=== PATIENT | female | born 1975 | race Two or more races ===

== ENCOUNTER 2020-06-20 22:54 | Inpatient (IN) | payer MEDICAID ==
[~2020-06-20] VITALS: Ht 154.9 cm; Wt 86.0 kg
[~2020-06-20 22:54] MED LIST: AMOX-263 PO; FER325T PO; HYDR-4833 PO; HYDR25TA4 PO; LEVO500T21 PO
[2020-06-20 23:58] LABS: Basophils # (auto) 0 10 ^3/uL (0-0.2); Eosinophils # (auto) 0.1 10 ^3/uL (0-0.8); Monocytes # (auto) 0.3 10 ^3/uL (0-1.3); Neutrophils # (auto) 3.1 10 ^3/uL (1.6-8.6); Red Cell Distribution Width 18.3 % (11.8-14.3)
[2020-06-21] VITALS (10 sets, daily range): BP systolic 117–153; BP diastolic 66–107
[2020-06-21] LABS: Basophils % (auto) 0.4 % (0.0-2.0); Eosinophils % (auto) 2.7 % (0.0-7.0); Hemoglobin 7.7 g/dL (12.2-16.2); Lymphocytes % (auto) 22.4 % (10.0-50.0); Mean Corpuscular Hemoglobin 19.3 pg (28.0-32.0); Mean Corpuscular Hgb Conc. 29.7 g/dL (32.0-36.0); Mean Corpuscular Volume 64.9 fL (80.0-100.0); Monocytes % (auto) 6.6 % (0.0-12.0); Neutrophils % (auto) 67.9 % (37.0-80.0); Platelet Count (auto) 396 10^3/uL (140-450); Red Blood Cells 4.01 10^6/uL (4.0-5.20); White Blood Cell 4.6 10^3/uL (4.4-10.8)
[2020-06-21 00:22] LABS: BUN/Creatinine Ratio 16.7; Calcium 8.3 mg/dL (8.5-10.1); Potassium 3.8 mmol/L (3.5-5.1)
[2020-06-21] MEDS ORDERED: cefTRIAXone 1GM/50ML D5W 50 ML IV ONE (02:15)
[2020-06-21] MEDS ORDERED: CLINDAMYCIN 900MG IV 50 ML IV ONE (02:15)
[2020-06-21] MEDS ORDERED: ACETAMINOPHEN 325 MG TAB PO PRN (02:45)
[2020-06-21] MEDS ORDERED: TEMAZEPAM 15 MG CAP PO PRN (02:45)
[2020-06-21] MEDS ORDERED: MORPHINE SULFATE 4 MG/ML SYR/VIAL IV ONE (03:15)
[2020-06-21] MEDS ORDERED: ONDANSETRON HCL 4 MG/2 ML VIAL IV ONE (03:15)
[2020-06-21] MEDS: ONDANSETRON HCL 4 MG/2 ML VIAL IV PRN ×2 (03:35→10:16)
[2020-06-21] MEDS: CLINDAMYCIN 600MG IV 50 ML IV SCH ×3 (06:16→21:43)
[2020-06-21] MEDS: HCTZ 25 MG TAB PO SCH (08:49)
[2020-06-21] MEDS: FERROUS SULFATE 325 MG TAB PO SCH ×2 (08:49→17:14)
[2020-06-21] MEDS: FAMOTIDINE 20 MG TAB PO SCH ×2 (08:49→21:44)
[2020-06-21] MEDS: cefTRIAXone 1GM/50ML D5W 50 ML IV SCH (09:20)
[2020-06-21] MEDS ORDERED: ONDANSETRON HCL 4 MG/2 ML VIAL IV PRN (10:00)
[2020-06-21] MEDS ORDERED: HYDROcodone-ACET 7.5/325MG TAB PO PRN (10:00)
[2020-06-21] MEDS ORDERED: MORPHINE SULF INJ 2 MG/ML SYRINGE 1ML IV PRN (10:00)
--- NOTE | 2020-06-21 11:29 | NUR ---
Midline Placement: Patient educated on need for midline placement. All risks and benefits explained and all questions and concerns addresses prior to procedure. 18g/10 cm midline inserted via RIGHT BASILIC vein using Ultrasound. Sterile technique utilized. Blood return obtained from the single lumen and flushed easily with NS using proper technique. Midline secured with saline lock; biodisc and occlusive dressing applied. Primary RN Vilma notified. Midline lot # [id number].
[2020-06-21 11:39] LABS: Basophils # (auto) 0 10 ^3/uL (0-0.2); Eosinophils # (auto) 0.1 10 ^3/uL (0-0.8); Monocytes # (auto) 0.4 10 ^3/uL (0-1.3); Red Cell Distribution Width 18.8 % (11.8-14.3)
[2020-06-21 11:40] LABS: Basophils % (auto) 0.4 % (0.0-2.0); Eosinophils % (auto) 1.9 % (0.0-7.0); Hematocrit 22.9 % (36.0-46.0); Lymphocytes % (auto) 22.1 % (10.0-50.0); Mean Corpuscular Hemoglobin 19.4 pg (28.0-32.0); Mean Corpuscular Hgb Conc. 29.9 g/dL (32.0-36.0); Mean Corpuscular Volume 64.9 fL (80.0-100.0); Monocytes % (auto) 9.7 % (0.0-12.0); Neutrophils # (auto) 2.9 10 ^3/uL (1.6-8.6); Neutrophils % (auto) 65.9 % (37.0-80.0); Platelet Count (auto) 327 10^3/uL (140-450); Red Blood Cells 3.53 10^6/uL (4.0-5.20); White Blood Cell 4.3 10^3/uL (4.4-10.8)
[2020-06-21 11:55] LABS: Albumin 2.1 g/dL (3.4-5.0); BUN/Creatinine Ratio 18.4; Calcium 7.6 mg/dL (8.5-10.1); Potassium 3.8 mmol/L (3.5-5.1)
[2020-06-21 11:59] LABS: Bilirubin, Total 0.3 mg/dL (0.2-1.0); Total Protein 6.8 g/dL (6.4-8.2)
[2020-06-21 12:08] LABS: Hemoglobin 6.9 g/dL (12.2-16.2)
[2020-06-21 12:37] LABS: Urine Bacteria NONE SEEN /hpf (None Seen); Urine Blood 1+ /uL (Negative); Urine Specific Gravity 1.014 (1.001-1.035); Urine WBC 2 /hpf (0 - 5)
[2020-06-21 12:53] LABS: Alcohol, Urine < 3.0 mg/dL (0-10); Amphetamine Screen, Urine POSITIVE (NEGATIVE); Barbiturate Scree,Urine NEGATIVE (NEGATIVE); Benzodiazephine Screen, Urine NEGATIVE (NEGATIVE); Cannabinoid Screen, Urine NEGATIVE (NEGATIVE); Cocaine Screen, Urine NEGATIVE (NEGATIVE); Opiate Scree,Urine POSITIVE (NEGATIVE); Phencyclidine Screen, Urine NEGATIVE (NEGATIVE)
--- NOTE | 2020-06-21 13:30 | NUR ---
MS admit from ER MALKA DUNCAN admitted to tele/MS after SBAR received. Patient oriented to SIMÓN RICH, primary RN, unit, room, bed, and unit policies regarding patient care and visiting hours. Patient weighed by bed scale and encouraged to call if they need something. All questions and concerns addressed, patient verbalized understanding.
--- NOTE | 2020-06-21 14:00 | NUR ---
Wound photos taken prior admission.
--- NOTE | 2020-06-21 15:00 | NUR ---
Wound dressing done to bilateral lower extremity.
--- NOTE | 2020-06-21 15:09 | NUR ---
Wound swab, MRSA swab and Covid sent.
--- NOTE | 2020-06-21 15:09 | NUR ---
Patient is missing a cane, spoke to Sumaya stated she found a cane and will bring it up.
--- NOTE | 2020-06-21 15:52 | NUR ---
Blood initiated Orders received and verified with additional nurse by read back. Baseline VS obtained and charted. Patient no complaints of pain. Initiated at rate 60 ml per hours for 15 mins then increase as tolerated. Will continue to monitor patient for change or indication of reaction. Additional charting as follows in [facility] transfusion history.
--- NOTE | 2020-06-21 17:07 | NUR ---
Patient refused 2rd covid testing.
--- NOTE | 2020-06-21 18:51 | NUR ---
Blood transfusion finished, no any reaction noted.
[2020-06-22 05:00] VITALS: BP 136/80
[2020-06-22] MEDS: CLINDAMYCIN 600MG IV 50 ML IV SCH ×2 (06:00→15:01)
[2020-06-22 07:04] LABS: Basophils # (auto) 0 10 ^3/uL (0-0.2); Eosinophils # (auto) 0.1 10 ^3/uL (0-0.8); Mean Corpuscular Hgb Conc. 30.3 g/dL (32.0-36.0)
[2020-06-22 07:05] LABS: Basophils % (auto) 0.5 % (0.0-2.0); Hematocrit 26.8 % (36.0-46.0); Hemoglobin 8.1 g/dL (12.2-16.2); Lymphocytes % (auto) 26.7 % (10.0-50.0); Mean Corpuscular Hemoglobin 19.5 pg (28.0-32.0); Mean Corpuscular Volume 64.4 fL (80.0-100.0); Monocytes # (auto) 0.3 10 ^3/uL (0-1.3); Neutrophils # (auto) 2.3 10 ^3/uL (1.6-8.6); Neutrophils % (auto) 60.8 % (37.0-80.0); Platelet Count (auto) 387 10^3/uL (140-450); Red Blood Cells 4.17 10^6/uL (4.0-5.20); Red Cell Distribution Width 18.6 % (11.8-14.3); White Blood Cell 3.7 10^3/uL (4.4-10.8)
[2020-06-22 07:12] LABS: Potassium 3.8 mmol/L (3.5-5.1)
[2020-06-22 07:19] LABS: Calcium 8.6 mg/dL (8.5-10.1)
[2020-06-22 09:00] VITALS: BP 122/84
[2020-06-22] MEDS: cefTRIAXone 1GM/50ML D5W 50 ML IV SCH (10:44)
[2020-06-22] MEDS: FERROUS SULFATE 325 MG TAB PO SCH ×2 (10:44→17:52)
[2020-06-22] MEDS: HCTZ 25 MG TAB PO SCH (10:45)
[2020-06-22] MEDS: FAMOTIDINE 20 MG TAB PO SCH ×2 (10:45→21:28)
--- NOTE | 2020-06-22 11:28 | NUR ---
Assessment SS consult regarding patient being homeless. Patient stated prior to admission she lived in a tent at [facility]. Discussed with patient options and resources for placement. Per Patient she will return home to her prior living arrangements post discharge and will need a Taxi Voucher. Patient stated she has been homeless for a year now and feels safe returning to her tent. Provided information to clothes closet and meal prior to discharge. Patient accepted. Offered patient taxi voucher within 30 miles and pt agreed. Completed home less assessment and pt signed homeless waiver. Patient verbalize understanding. Informed RAFAEL Scott. Addendum: 06/22/20 at 1133 by GISSEL NIELSEN Amended: Links added.
--- NOTE | 2020-06-22 12:38 | NUR ---
Home medications Patient's pharmacy is up to date. She said she is unsure of what medications she is supposed to be taking because she doesn't have a doctor or insurance. SS went to talk to her about insurance and her living situation and gave her information.
[2020-06-22 13:00] VITALS: BP 130/73
--- NOTE | 2020-06-22 13:30 | NUR ---
WOUND CARE NOTE: IN TO SEE PATIENT AT THIS TIME PER WOUND CARE CONSULT REQUEST. ADMIT PHOTOS TAKEN UPON ADMIT BY BEDSIDE NURSE FOR REFERENCE. PATIENT ADMITTED TO [facility] WITH DIAGNOSIS OF BLE/CELLULITIS. CURRENT ELOY SCORE IS 15. PATIENT IS ABLE TO AMBULATE, SELF TURN/REPOSITION SELF. PATIENT HAS A MULTI YEAR HISTORY WITH CHRONIC VENOUS STASIS ULCERS. SHE HAS HAD NO INSURANCE UP TO NOW, AND HAS BEEN TRYING TO SELF MANAGE HER ULCERS TO BILATERAL LOWER LEGS THAT ARE CHRONIC, MULTIPLE YEARS OLD WOUNDS. WOUNDS ARE VERY PAINFUL UPON EXAMINATION AND DRESSING CHANGE. PATIENT WAS MEDICATED FOR PAIN BY BEDSIDE NURSE AT THIS TIME. WOUND CULTURES AREA PENDING. WOUNDS TO BOTH LOWER LEGS ARE VERY LARGE, IRREGULAR SHAPED. WEEPING SEROUS DRAINAGE. BOTH LEGS ARE VERY EDEMATOUS/TAUT, PATIENT HAS BEEN DIAGNOSIS WITH LYMPHEDEMA. NEW WOUND PHOTOS TAKEN AT THIS TIME WITH MEASUREMENTS FOR REFERENCE. RECOMMEND: EOD/PRN DRESSING CHANGE WITH XEROFORM, OPTILOCK DRESSINGS, KERLIX WRAP, SECURING WITH # 7 STOCKINETTE TO BOTH LOWER LEGS, DIETARY CONSULT, SKIN/WOUND CARE PLAN, ELEVATION OF BOTH LEGS UP USING PILLOWS WHEN IN BED, CONTINUED MONITORING BY WOUND CARE TEAM. Addendum: 06/22/20 at 2033 by Maci Yeager RN Amended: Links added.
[2020-06-22] MEDS: MORPHINE SULF INJ 2 MG/ML SYRINGE 1ML IV PRN ×3 (14:00→23:27)
[2020-06-22 17:00] VITALS: BP 141/71
--- NOTE | 2020-06-22 19:15 | NUR ---
Opening Shift Note Assumed care of patient, awake and alert. No S/S of distress/SOB or pain. Instructed on POC and to call for assist PRN, will continue to monitor for changes Q1hr and PRN. Bed placed in lowest position and call light within reach.
[2020-06-22] MEDS: LINEZOLID 600MG/300ML 300 ML IV SCH (21:11)
[2020-06-22] MEDS: MUPIROCIN 2% OINT 15gm or 22gm EACHNOSTRI SCH (21:28)
[2020-06-22 22:00] VITALS: BP 132/76
--- NOTE | 2020-06-22 22:00 | NUR ---
Dressing to bilateral lower extremities is clean dry and intact.
[2020-06-23 05:00] VITALS: BP 126/71
[2020-06-23 06:09] LABS: Basophils # (auto) 0 10 ^3/uL (0-0.2); Eosinophils # (auto) 0.1 10 ^3/uL (0-0.8); Hematocrit 26.9 % (36.0-46.0); Hemoglobin 8.2 g/dL (12.2-16.2); Lymphocytes # (auto) 1.1 10 ^3/uL (0.4-5.4); Monocytes # (auto) 0.4 10 ^3/uL (0-1.3)
[2020-06-23 06:11] LABS: Basophils % (auto) 0.5 % (0.0-2.0); Lymphocytes % (auto) 25.5 % (10.0-50.0); Mean Corpuscular Hgb Conc. 30.7 g/dL (32.0-36.0); Mean Corpuscular Volume 65.1 fL (80.0-100.0); Monocytes % (auto) 9.7 % (0.0-12.0); Neutrophils # (auto) 2.7 10 ^3/uL (1.6-8.6); Neutrophils % (auto) 61.3 % (37.0-80.0); Platelet Count (auto) 361 10^3/uL (140-450); Red Blood Cells 4.13 10^6/uL (4.0-5.20); Red Cell Distribution Width 18.8 % (11.8-14.3); White Blood Cell 4.4 10^3/uL (4.4-10.8)
[2020-06-23 06:26] LABS: Calcium 8.3 mg/dL (8.5-10.1); Potassium 3.9 mmol/L (3.5-5.1)
[2020-06-23 06:30] LABS: BUN/Creatinine Ratio 21.7
[2020-06-23 09:00] VITALS: BP 130/78
[2020-06-23] MEDS ORDERED: CLIN300C8 PO (11:27)
[2020-06-23] MEDS ORDERED: MUPI2OIN2 EACHNOSTRI (11:28)
[2020-06-23 13:00] VITALS: BP 130/78
[2020-06-23 14:11] VITALS: BP 130/78
[2020-06-23 14:21] VITALS: BP 130/78
--- NOTE | 2020-06-23 15:54 | NUR ---
Nutrition Consult Consider adding MVI and Vitamin C 500 mg BID Est energy needs 2245-2065 kcal (20-23 kcal/kg BW 86kg) Est protein needs 48-62g (1-1.3g/kg IBW 47.7kg) Will reassess prn. Addendum: 06/23/20 at [address] Amended: Links added.
[2020-06-23] MEDS: LINEZOLID 600MG/300ML 300 ML IV SCH (16:23)
[2020-06-23] MEDS: FERROUS SULFATE 325 MG TAB PO SCH (16:23)
[2020-06-23] MEDS: cefTRIAXone 1GM/50ML D5W 50 ML IV SCH (16:24)
[2020-06-23] MEDS: MUPIROCIN 2% OINT 15gm or 22gm EACHNOSTRI SCH (16:24)
[2020-06-23] MEDS: MORPHINE SULF INJ 2 MG/ML SYRINGE 1ML IV PRN (16:25)
[2020-06-23] MEDS: FAMOTIDINE 20 MG TAB PO SCH (16:25)
[2020-06-23] MEDS: HCTZ 25 MG TAB PO SCH (16:25)
[2020-06-29] MEDS ORDERED: MUPIROCIN 2% OINT 15gm or 22gm EACHNOSTRI SCH (23:59)
== END 2020-06-23 18:00 | disposition home health service (06) | DRG 383 ==
LOC: ER 22:54 → OVERFLOW 22:55 → WEST WING 06-21 13:42
PROVIDERS: ADMIT Nurse Practitioner; ATTEND Internal Medicine Pulmonary Disease
PROC: 30233N1 Transfusion of Nonautologous Red Blood Cells into Peripheral Vein, Percutaneous Approach (ICD-10-PCS; principal; 2020-06-21)
DX: L03.115 Cellulitis of right lower limb (principal); D50.9 Iron deficiency anemia, unspecified; E66.9 Obesity, unspecified; I10 Essential (primary) hypertension; I87.8 Other specified disorders of veins; S81.802A Unspecified open wound, left lower leg, initial encounter; S81.801A Unspecified open wound, right lower leg, initial encounter; B95.62 Methicillin resistant Staphylococcus aureus infection as the cause of diseases classified elsewhere; L03.116 Cellulitis of left lower limb; Z20.828 Contact with and (suspected) exposure to other viral communicable diseases; F32.9 Major depressive disorder, single episode, unspecified; X58.XXXA Exposure to other specified factors, initial encounter; F20.9 Schizophrenia, unspecified; Z68.35 Body mass index [BMI] 35.0-35.9, adult; Z90.49 Acquired absence of other specified parts of digestive tract; Z83.3 Family history of diabetes mellitus; Y93.89 Activity, other specified; Y92.89 Other specified places as the place of occurrence of the external cause; Y99.8 Other external cause status; Z79.899 Other long term (current) drug therapy; E44.1 Mild protein-calorie malnutrition; I89.0 Lymphedema, not elsewhere classified; F12.90 Cannabis use, unspecified, uncomplicated
CPT/HCPCS: 36415; 36430; 71045; 73700; 80048; 80053; 80307; 81001; 83605; 83880; 85025; 86141; 86850; 86900; 86901; 86920; 87040; 87077; 87081; 87186; 87205; 87426; 96365; 96367; 96375; G0378; J0696; J2405; J3490

== ENCOUNTER 2020-07-19 23:13 | Inpatient (IN) | payer MEDICAID ==
[~2020-07-19] VITALS: Ht 152.4 cm; Wt 88.2 kg
[~2020-07-19 23:13] MED LIST changes: -AMOX-263 PO; +CLIN300C8 PO; -LEVO500T21 PO; +MUPI2OIN2 EACHNOSTRI
[2020-07-19] MEDS ORDERED: SODIUM CHLORIDE 0.9% 500 ML IV ONE (23:30)
[2020-07-20 00:18] LABS: Eosinophils # (auto) 0 10 ^3/uL (0-0.8); Lymphocytes # (auto) 0.7 10 ^3/uL (0.4-5.4); White Blood Cell 21.7 10^3/uL (4.4-10.8)
[2020-07-20 00:20] LABS: Basophils # (auto) 0.1 10 ^3/uL (0-0.2); Basophils % (auto) 0.4 % (0.0-2.0); Hematocrit 31.5 % (36.0-46.0); Hemoglobin 9.6 g/dL (12.2-16.2); Lymphocytes % (auto) 3.3 % (10.0-50.0); Mean Corpuscular Hemoglobin 20.1 pg (28.0-32.0); Mean Corpuscular Hgb Conc. 30.3 g/dL (32.0-36.0); Mean Corpuscular Volume 66.3 fL (80.0-100.0); Monocytes # (auto) 0.7 10 ^3/uL (0-1.3); Monocytes % (auto) 3.1 % (0.0-12.0); Neutrophils # (auto) 20.2 10 ^3/uL (1.6-8.6); Neutrophils % (auto) 93.2 % (37.0-80.0); Platelet Count (auto) 354 10^3/uL (140-450); Red Blood Cells 4.75 10^6/uL (4.0-5.20); Red Cell Distribution Width 19.6 % (11.8-14.3)
[2020-07-20] MEDS ORDERED: CLINDAMYCIN 900MG IV 50 ML IV ONE (00:30)
[2020-07-20] MEDS ORDERED: HYDROmorphone HCL 2 MG/ML VL IV ONE (00:30)
[2020-07-20] MEDS ORDERED: ONDANSETRON HCL 4 MG/2 ML VIAL IV ONE (00:30)
[2020-07-20] MEDS ORDERED: cefTRIAXone 1GM/50ML D5W 50 ML IV ONE (00:30)
[2020-07-20 00:42] LABS: INR 1.04 (0.9-1.15)
[2020-07-20 00:43] LABS: Partial Thromboplastin Time 20.9 sec (23.0-31.2)
[2020-07-20 00:53] LABS: Albumin 2.7 g/dL (3.4-5.0); BUN/Creatinine Ratio 14.7; Calcium 8.9 mg/dL (8.5-10.1); Potassium 3.8 mmol/L (3.5-5.1)
[2020-07-20 00:55] LABS: Bilirubin, Total 0.7 mg/dL (0.2-1.0)
[2020-07-20] MEDS ORDERED: ACETAMINOPHEN 325 MG TAB PO PRN (06:00)
[2020-07-20] MEDS ORDERED: ONDANSETRON HCL 4 MG/2 ML VIAL IV PRN (06:00)
[2020-07-20] MEDS ORDERED: TEMAZEPAM 15 MG CAP PO PRN (06:00)
[2020-07-20 07:06] LABS: Urine Bacteria NONE SEEN /hpf (None Seen); Urine Blood 1+ /uL (Negative); Urine Mucus FEW (None Seen); Urine Specific Gravity 1.018 (1.001-1.035); Urine WBC 2 /hpf (0 - 5)
--- NOTE | 2020-07-20 08:15 | NUR ---
ASSESSMENT NOTE PT ARRIVED FROM ER VIA GURNEY, ALERT ORIENTED X4, APPEAR LETHARGIC, DEEP EXCORIATION WOUNDS NOTED AT BOTH LOWER EXTREMITIES, WITH 3-4 PLUS EDEMA, TENDER TO TOUCH, ABLE TO VERBALIS HER NEEDS, ASSIST IN REPOSITIONING, ROOM ORIENTATION GIVEN TO PT, CALL LIGHT WITHIN REACH, BED ALARM ACTIVATED
[2020-07-20 09:00] VITALS: BP 128/81
[2020-07-20] MEDS ORDERED: cefTRIAXone 1GM/50ML D5W 50 ML IV SCH (09:00)
[2020-07-20] MEDS: FAMOTIDINE 20 MG TAB PO SCH ×2 (09:11→22:02)
[2020-07-20] MEDS: HCTZ 25 MG TAB PO SCH (09:12)
--- NOTE | 2020-07-20 10:30 | NUR ---
WOUND NURSE ILLEN AT BED SIDE WITH WOUND CARE, PICTURES, FOR BOTH LOWER EXTREMITIES, PT TOLERATED WELL
--- NOTE | 2020-07-20 10:50 | NUR ---
WOUND CARE NOTE: Wound care in to see patient per wound care request regarding "bilateral leg wounds". Patient is 45 y/o female admitted due to bilateral lower extremity wounds. Patient is resting in bed in Rm. 217B. Patient's eyes are closed, very sleepy, respond to verbal and tactile stimuli. Patient is in no stated pain at this time however mild pain noted upon turning. Patient is able to assist in turning and repositioning and her Sukhdeep score is 18. Skin/wound assessment done with the assistance of patient's nurse, RAFAEL Pedro. Patient has history of chronic venous stasis ulcer to BLE. Her left lower leg has large open full thickness wound to anterior, medial, lateral and posterior lower leg measuring [id number]. Wound is red with scattered yellow adherent slough, minimal serous drainage, no odor noted. Her Rt lateral lower leg/calf has 16x5x0.5cm open, draining stasis ulcer. Wound is red with yellow slough, minimal purulent drainage noted, no odor noted. BLE wounds are irregularly shaped. Wound culture specimen reported sent to lab an in process. Patient's BLE are erythremic and edematous, Pedal pulse present. Cleansed BLE wounds with wound cleanser,patted dry with gauze, applied Xeroform dressing, covered with Opti lock dressing and secured with stockinette. Patient also noted with rectal/vaginal prolapse, skin is intact, pink and dry. Patient has urology consult ordered. Photograph of patient's wounds/skin issue are taken for reference. Repositioned patient for comfort facing her Rt side, redistributed pressure points with pillows. Patient tolerated well. Bed in low position, call horton within reach, all safety precautions in placed. RECOMMENDATION: BID/PRN cleaning and application of Barrier cream to sacral, buttocks as preventative, Daily/PRN dressing change to BLE wounds/ podiatry/surgical consult, frequent turning and repositioning schedule as condition permits, redistribute pressure points with pillows, elevate BLE on pillows, continue monitoring by wound care while patient is hospitalized. Addendum: 07/20/20 at 1505 by Christy Muro RN Amended: Links added.
[2020-07-20 13:00] VITALS: BP 111/54
[2020-07-20] MEDS: CLINDAMYCIN 600MG IV 50 ML IV SCH ×2 (13:43→22:01)
[2020-07-20 17:04] VITALS: BP 145/81
--- NOTE | 2020-07-20 18:28 | NUR ---
PT CONTINUE STABLE, CONTINUE MONITORING
[2020-07-20] MEDS: MEROPENEM 1GM IVPB 100 ML IV SCH (19:28)
--- NOTE | 2020-07-20 19:30 | NUR ---
Opening Shift Note Assumed care of patient, resting in bed with breaths even and unlabored. No S/S of distress/SOB noted. Instructed on POC and to call for assist PRN. Bed is in lowest locked position with bed rails up x2 and call light is within reach of the patient.
--- NOTE | 2020-07-20 19:37 | NUR ---
Pain medication: Hospitalist was paged and spoke to Dr. Manuel regarding patient requesting stronger pain medication regarding patients pain. Patient has a 8/10 pain on bilateral legs. New orders received. To place orders.
[2020-07-20] MEDS ORDERED: traMADol HCL 50 MG TAB PO PRN (19:45)
[2020-07-20 21:00] VITALS: BP 140/81
--- NOTE | 2020-07-20 21:00 | NUR ---
IV Placement: Patients IV infiltrated. Patient is a difficult stick with 4 different RNs attempting to place IV on the patient. 22 Gauge placed on right forearm for antibiotic administration.
[2020-07-20] MEDS: MORPHINE SULF INJ 2 MG/ML SYRINGE 1ML IV PRN (22:11)
[2020-07-21 05:00] VITALS: BP 145/73
[2020-07-21] MEDS: CLINDAMYCIN 600MG IV 50 ML IV SCH ×2 (05:21→14:25)
[2020-07-21] MEDS: MORPHINE SULF INJ 2 MG/ML SYRINGE 1ML IV PRN ×3 (05:21→23:13)
--- NOTE | 2020-07-21 05:49 | NUR ---
IV: Patients IV pump says pressure high when attempting to administer antibiotic medications even after flushing and repositioning. Patient is a difficult stick. Waiting for more experienced RN to placed IV to administer antibiotics.
[2020-07-21 06:22] LABS: % Iron Saturation 5.7 % (15-50)
[2020-07-21 06:29] LABS: Calcium 8.6 mg/dL (8.5-10.1); Potassium 3.4 mmol/L (3.5-5.1)
[2020-07-21 06:30] LABS: Basophils # (auto) 0 10 ^3/uL (0-0.2); Basophils % (auto) 0.2 % (0.0-2.0); Eosinophils # (auto) 0.1 10 ^3/uL (0-0.8); Hemoglobin 9.1 g/dL (12.2-16.2); Monocytes # (auto) 0.5 10 ^3/uL (0-1.3)
[2020-07-21 06:32] LABS: Eosinophils % (auto) 0.8 % (0.0-7.0); Hematocrit 29.7 % (36.0-46.0); Lymphocytes # (auto) 0.8 10 ^3/uL (0.4-5.4); Lymphocytes % (auto) 8.7 % (10.0-50.0); Mean Corpuscular Hemoglobin 20.4 pg (28.0-32.0); Mean Corpuscular Hgb Conc. 30.8 g/dL (32.0-36.0); Mean Corpuscular Volume 66.4 fL (80.0-100.0); Neutrophils % (auto) 85.3 % (37.0-80.0); Nucleated Red Blood Cells % 0.2 %; Platelet Count (auto) 326 10^3/uL (140-450); Red Blood Cells 4.47 10^6/uL (4.0-5.20); Red Cell Distribution Width 19.6 % (11.8-14.3); White Blood Cell 9.3 10^3/uL (4.4-10.8)
[2020-07-21 06:32] LABS: BUN/Creatinine Ratio 22.2
[2020-07-21] MEDS: MEROPENEM 1GM IVPB 100 ML IV SCH ×3 (06:35→22:24)
--- NOTE | 2020-07-21 07:10 | NUR ---
Opening Shift Note Assumed care of patient, awake and alert. No S/S of distress/SOB or pain. Instructed on POC and to call for assist PRN, will continue to monitor for changes Q1hr and PRN. Bed locked in lowest position, HOB elevated at least 30 degrees and call light is within reach.
[2020-07-21 09:00] VITALS: BP 143/73
[2020-07-21] MEDS ORDERED: POTASSIUM EFFERVESENT TAB 25 MEQ PO ONE (09:15)
[2020-07-21] MEDS: FAMOTIDINE 20 MG TAB PO SCH ×2 (09:17→22:09)
[2020-07-21] MEDS: HCTZ 25 MG TAB PO SCH (09:17)
[2020-07-21] MEDS: FERROUS SULFATE 325 MG TAB PO SCH ×2 (12:17→17:16)
[2020-07-21 13:00] VITALS: BP 132/73
--- NOTE | 2020-07-21 13:20 | NUR ---
MD ROUNDS DR LOCK AT BEDSIDE. NO NEW ORDERS AT THIS TIME. CONTINUE CARE.
--- NOTE | 2020-07-21 14:00 | NUR ---
Midline Placement: Patient educated on need for midline placement. All risks and benefits explained and all questions and concerns addresses prior to procedure. 18g/10 cm midline inserted via RIGHT BASILIC vein using Ultrasound. Sterile technique utilized. Blood return obtained from the single lumen and flushed easily with NS using proper technique. Midline secured with saline lock; biodisc and occlusive dressing applied. Primary RN SONNY notified. Midline lot # [id number]
--- NOTE | 2020-07-21 14:20 | NUR ---
MIDLINE PLACEMENT MIDLINE PLACED BY MIDLINE NURSE ANGELIA HALL. MIDLINE PLACEMENT AT RIGHT UPPER ARM. AREA ASYMPTOMATIC. IV FLUSHING WELL.
[2020-07-21] MEDS ORDERED: VANCOMYCIN PER PHARMACY 0 MG IV SCH (14:45)
--- NOTE | 2020-07-21 14:54 | NUR ---
Nutrition Assessment/Consult Notes Please refer to link for full assessment notes. Est Energy needs: 2681-3420 kcals (12-15 kcal/kgBW) Est Protein needs: 78-98 gms/day (0.8-1.0 gm/kgBW) Will continue to monitor and reassess prn. Addendum: 07/21/20 at [address] Amended: Links added.
[2020-07-21 16:30] VITALS: BP 137/78
[2020-07-21] MEDS: VANCOMYCIN 1GM/250ML 250 ML IV SCH (17:16)
--- NOTE | 2020-07-21 19:30 | NUR ---
ENDORSED CARE TO NOC SHIFT RN
[2020-07-21 21:00] VITALS: BP 150/83
[2020-07-22] MEDS: VANCOMYCIN 1GM/250ML 250 ML IV SCH ×3 (01:05→17:05)
[2020-07-22 05:00] VITALS: BP 161/91
[2020-07-22] MEDS: MEROPENEM 1GM IVPB 100 ML IV SCH ×3 (06:00→22:31)
[2020-07-22 06:13] LABS: Basophils # (auto) 0 10 ^3/uL (0-0.2); Basophils % (auto) 0.3 % (0.0-2.0); Eosinophils # (auto) 0.1 10 ^3/uL (0-0.8); Eosinophils % (auto) 1.2 % (0.0-7.0); Hematocrit 30.8 % (36.0-46.0); Hemoglobin 9.7 g/dL (12.2-16.2); Lymphocytes # (auto) 0.9 10 ^3/uL (0.4-5.4); Lymphocytes % (auto) 16.7 % (10.0-50.0); Mean Corpuscular Hemoglobin 20.5 pg (28.0-32.0); Mean Corpuscular Hgb Conc. 31.4 g/dL (32.0-36.0); Mean Corpuscular Volume 65.5 fL (80.0-100.0); Monocytes # (auto) 0.4 10 ^3/uL (0-1.3); Monocytes % (auto) 7.2 % (0.0-12.0); Neutrophils # (auto) 4.1 10 ^3/uL (1.6-8.6); Neutrophils % (auto) 74.6 % (37.0-80.0); Platelet Count (auto) 371 10^3/uL (140-450); Red Cell Distribution Width 19.7 % (11.8-14.3); White Blood Cell 5.5 10^3/uL (4.4-10.8)
[2020-07-22 06:35] LABS: Calcium 8.9 mg/dL (8.5-10.1); Potassium 3.6 mmol/L (3.5-5.1)
[2020-07-22 06:39] LABS: BUN/Creatinine Ratio 20.7
[2020-07-22] MEDS: MORPHINE SULF INJ 2 MG/ML SYRINGE 1ML IV PRN ×4 (06:39→22:54)
--- NOTE | 2020-07-22 07:05 | NUR ---
Opening Shift Note Assumed care of patient, awake and alert. No S/S of distress/SOB or pain. Instructed on POC and to call for assist PRN, will continue to monitor for changes Q1hr and PRN. Assisted patient with ADLs. Bed locked in lowest position, HOB elevated at least 30 degrees and call light is within reach.
[2020-07-22] MEDS: FERROUS SULFATE 325 MG TAB PO SCH ×3 (07:28→17:05)
[2020-07-22 09:00] VITALS: BP 149/95
[2020-07-22] MEDS: HCTZ 25 MG TAB PO SCH (10:44)
[2020-07-22] MEDS: FAMOTIDINE 20 MG TAB PO SCH ×2 (10:45→22:32)
--- NOTE | 2020-07-22 11:20 | NUR ---
MD ROUNDS DR CATHERINE AT BEDSIDE. ORDERS RECEIVED AND VERIFIED. CONTINUE CARE.
[2020-07-22] MEDS: MUPIROCIN 2% OINT 15gm or 22gm EACHNOSTRI SCH ×2 (12:34→23:26)
[2020-07-22] MEDS: Ensure HIGH Protein Chocolate 8oz Bottle PO SCH ×2 (12:35→18:18)
[2020-07-22 13:00] VITALS: BP 134/97
--- NOTE | 2020-07-22 13:20 | NUR ---
PATIENT OFF UNIT TO SMOKE Addendum: 07/22/20 at 1815 by SONNY HANNAH RN RN TIME WAS [id number]
--- NOTE | 2020-07-22 13:22 | NUR ---
AMA TO SMOKE PATIENT SIGNED AMA TO SMOKE. EDUCATED PATIENT ON POTENTIAL COMPLICATIONS OF LEAVING UNIT TO SMOKE. PATIENT VERBALIZED UNDERSTANDING.
--- NOTE | 2020-07-22 14:00 | NUR ---
WU CATHETER REMOVED
--- NOTE | 2020-07-22 16:30 | NUR ---
PATIENT RETURNED TO ROOM
[2020-07-22 17:28] VITALS: BP 136/97
--- NOTE | 2020-07-22 18:30 | NUR ---
IV removal IV DC'd at right upper arm with clean sterile technique, catheter fully intact. Pressure dressing applied to site. Patient tolerated well.
--- NOTE | 2020-07-22 19:29 | NUR ---
ENDORSED CARE TO NOC SHIFT RN
--- NOTE | 2020-07-22 19:30 | NUR ---
Opening Shift Note Assumed care of patient, awake and alert. No S/S of distress/SOB or pain. Insructed on POC and to callfor assist PRN, will continue to monitor for changes Q1hr and PRN.
[2020-07-22 22:00] VITALS: BP 132/93
[2020-07-22] MEDS: DAKINS QUARTER STR 0.125% (NaHypochlorite) 473 ML TOPICAL SOL TOP SCH (22:00)
[2020-07-23 04:53] VITALS: BP 132/87
[2020-07-23] MEDS: VANCOMYCIN 1GM/250ML 250 ML IV SCH ×2 (05:05→16:20)
[2020-07-23] MEDS: MEROPENEM 1GM IVPB 100 ML IV SCH ×3 (06:33→22:58)
[2020-07-23] MEDS: MORPHINE SULF INJ 2 MG/ML SYRINGE 1ML IV PRN ×3 (06:47→23:43)
[2020-07-23 07:00] LABS: Basophils # (auto) 0 10 ^3/uL (0-0.2); Hemoglobin 10.1 g/dL (12.2-16.2); Lymphocytes # (auto) 1.2 10 ^3/uL (0.4-5.4); Lymphocytes % (auto) 24.5 % (10.0-50.0); Monocytes # (auto) 0.5 10 ^3/uL (0-1.3); Monocytes % (auto) 10.3 % (0.0-12.0); Neutrophils # (auto) 3.1 10 ^3/uL (1.6-8.6); Nucleated Red Blood Cells % 0.1 %; White Blood Cell 4.9 10^3/uL (4.4-10.8)
[2020-07-23 07:02] LABS: Eosinophils # (auto) 0 10 ^3/uL (0-0.8); Eosinophils % (auto) 0.9 % (0.0-7.0); Hematocrit 32.6 % (36.0-46.0); Mean Corpuscular Hemoglobin 20.2 pg (28.0-32.0); Mean Corpuscular Volume 65.3 fL (80.0-100.0); Neutrophils % (auto) 63.3 % (37.0-80.0); Platelet Count (auto) 406 10^3/uL (140-450); Red Blood Cells 4.99 10^6/uL (4.0-5.20); Red Cell Distribution Width 19.4 % (11.8-14.3)
[2020-07-23 07:17] LABS: Calcium 8.8 mg/dL (8.5-10.1); Potassium 3.6 mmol/L (3.5-5.1)
[2020-07-23 07:19] LABS: BUN/Creatinine Ratio 26.2
--- NOTE | 2020-07-23 07:27 | NUR ---
ENDORSED CARE TO AM SHIFT RN
--- NOTE | 2020-07-23 07:30 | NUR ---
Opening Shift Note Received report from nightman RN. Assumed care of patient, awake and alert. No S/S of distress/SOB or pain. Instructed on POC and to call for assist PRN, will continue to monitor for changes Q1hr and PRN.
[2020-07-23 08:44] VITALS: BP 110/68
[2020-07-23] MEDS: FERROUS SULFATE 325 MG TAB PO SCH ×3 (09:22→17:43)
[2020-07-23] MEDS: Ensure HIGH Protein Chocolate 8oz Bottle PO SCH ×3 (09:23→17:44)
[2020-07-23] MEDS: FAMOTIDINE 20 MG TAB PO SCH ×2 (09:30→22:58)
[2020-07-23] MEDS: MUPIROCIN 2% OINT 15gm or 22gm EACHNOSTRI SCH ×2 (09:35→22:57)
[2020-07-23] MEDS: HCTZ 25 MG TAB PO SCH (09:37)
[2020-07-23] MEDS: DAKINS QUARTER STR 0.125% (NaHypochlorite) 473 ML TOPICAL SOL TOP SCH ×2 (12:42→22:00)
--- NOTE | 2020-07-23 12:45 | NUR ---
WOUNDS WOUND CARE DONE ORDERED.
[2020-07-23 13:00] VITALS: BP 120/70
--- NOTE | 2020-07-23 13:50 | NUR ---
MEDICATION CALLED PHARMACY TO MAKE AWARE THAT MERREM IS NOT AVAILABLE, PER PHARMACY MEDICATION WILL BE SENT.
[2020-07-23 16:16] VITALS: BP 114/76
--- NOTE | 2020-07-23 19:13 | NUR ---
SHIFT CHANGE REPORT GIVEN TO PLANT ENGINEERING MANAGER RN. PT STABLE AT THIS TIME, NO DISTRESS NOTED.
[2020-07-23 22:00] VITALS: BP 122/89
--- NOTE | 2020-07-23 23:30 | NUR ---
Completed Lower Bilateral Extremity Dressing change.
[2020-07-24] MEDS: VANCOMYCIN 1GM/250ML 250 ML IV SCH ×2 (01:06→11:00)
[2020-07-24 05:19] VITALS: BP 126/73
[2020-07-24] MEDS: MEROPENEM 1GM IVPB 100 ML IV SCH ×2 (05:31→14:00)
[2020-07-24] MEDS: MORPHINE SULF INJ 2 MG/ML SYRINGE 1ML IV PRN (06:39)
--- NOTE | 2020-07-24 07:12 | NUR ---
OPENING SHIFT NOTE ASSUMED CARE OF PATIENT FROM BASE BRANDER RN PETER. PATIENT IS AWAKE, ALERT, ORIENTED X4. PATIENT HAS NO S/S OF DISTRESS/SOB OR PAIN. INSTRUCTED PATIENT ON POC, PATIENT VERBALIZED UNDERSTANDING. BED IS IN LOWEST POSITION WITH SIDE RAILS RAISED X2, BED WHEELS LOCKED, AND CALL LIGHT IS WITHIN REACH. WILL CONTINUE TO MONITOR.
[2020-07-24 07:25] LABS: Potassium 3.8 mmol/L (3.5-5.1)
--- NOTE | 2020-07-24 07:25 | NUR ---
CARE ENDORSED TO AM SHIFT RN
[2020-07-24 07:30] LABS: BUN/Creatinine Ratio 34.4
[2020-07-24 07:37] LABS: Basophils # (auto) 0 10 ^3/uL (0-0.2); Basophils % (auto) 0.6 % (0.0-2.0); Eosinophils # (auto) 0.1 10 ^3/uL (0-0.8); Eosinophils % (auto) 1.5 % (0.0-7.0); Hematocrit 31.8 % (36.0-46.0); Lymphocytes # (auto) 1.3 10 ^3/uL (0.4-5.4); Lymphocytes % (auto) 29.8 % (10.0-50.0); Mean Corpuscular Hemoglobin 20.5 pg (28.0-32.0); Mean Corpuscular Hgb Conc. 31.5 g/dL (32.0-36.0); Mean Corpuscular Volume 65.1 fL (80.0-100.0); Monocytes # (auto) 0.6 10 ^3/uL (0-1.3); Monocytes % (auto) 13.5 % (0.0-12.0); Neutrophils # (auto) 2.3 10 ^3/uL (1.6-8.6); Neutrophils % (auto) 54.6 % (37.0-80.0); Platelet Count (auto) 370 10^3/uL (140-450); Red Blood Cells 4.89 10^6/uL (4.0-5.20); Red Cell Distribution Width 19.7 % (11.8-14.3); White Blood Cell 4.2 10^3/uL (4.4-10.8)
[2020-07-24 08:00] VITALS: BP 118/61
[2020-07-24] MEDS: Ensure HIGH Protein Chocolate 8oz Bottle PO SCH ×2 (08:00→12:00)
[2020-07-24 09:00] VITALS: BP 124/79
[2020-07-24] MEDS ORDERED: FER325T PO (09:10)
[2020-07-24] MEDS ORDERED: DOXY-112 PO (09:10)
[2020-07-24] MEDS ORDERED: CIPR-173 PO (09:12)
[2020-07-24] MEDS ORDERED: FAMO-12 PO (09:12)
[2020-07-24] MEDS ORDERED: CIPR750T3 PO (09:14)
[2020-07-24] MEDS: FERROUS SULFATE 325 MG TAB PO SCH ×2 (09:22→12:00)
[2020-07-24] MEDS: FAMOTIDINE 20 MG TAB PO SCH (09:22)
[2020-07-24] MEDS: MUPIROCIN 2% OINT 15gm or 22gm EACHNOSTRI SCH (09:23)
[2020-07-24] MEDS: HCTZ 25 MG TAB PO SCH (09:23)
[2020-07-24] MEDS: DAKINS QUARTER STR 0.125% (NaHypochlorite) 473 ML TOPICAL SOL TOP SCH (09:23)
--- NOTE | 2020-07-24 10:45 | NUR ---
MD LOCK AT BEDSIDE UPDATED MD ON PATIENT'S STATUS, MD IS AWARE AND STATED LABS DO NOT NEED TO BE DRAWN AND SHE WILL PUT IN ORDERS FOR DISCHARGE. WILL FOLLOW THROUGH WITH ORDERS.
--- NOTE | 2020-07-24 11:18 | NUR ---
Nutrition Followup Notes Pt wt is 88.2 kg Pt was sleeping when rounded this morning. Pt is with a Cardiac 2gNa diet, appetite is good aeb ave 83% PO intake over 3 meals per RN doc. Est Energy needs: 8149-4271 kcals (12-15 kcal/kgBW) Est Protein needs: 78-98 gms/day (0.8-1.0 gm/kgBW) Will continue to monitor and reassess prn. LABS: BUN 22 H, Alb 2.7 L GI: Pt had 1 BM on 07/20 per RN doc BS: 16 mod risk. Refer to wound assessment report for full details. PES: 1) Inadequate oral intake r/t pt with poor appetite aeb pt with no PO intake 2) Obesity r/t energy intake in excess of energy needs aeb 215% IBW and BMI of 42.1 kg/m2 3) Altered nutrition related lab values r/t current medical condition aeb hypokalemia, mod hypoalbuminemia Malnutrition related to morbid Weight 200% of ideal wt Malnutrition related to morbid obesity Yes Comments Will continue to monitor PO status, skin status, pertinent labs and weight trends. Will f/u in 3-5 days. 1) Continue to carefully monitor pt PO intake to meet at least 75% of meals 2) Continue current plan of care
[2020-07-24] MEDS ORDERED: DAKI0.12 EXT (12:13)
[2020-07-24 13:00] VITALS: BP 130/74
[2020-07-24 13:06] VITALS: BP 118/61
--- NOTE | 2020-07-24 15:35 | NUR ---
Discharge instructions given as ordered. Encourage to follow up with PMD as instructed. All questions and concerns addressed. Patient verbalized understanding. Medication reconciliation form completed and copy given to patient. IV removed with catheter intact, pressure dressing applied. Patient taken to vehicle via wheelchair with all personal belongings, accompanied by staff. No distress noted at time of departure.
== END 2020-07-24 15:37 | disposition home or self-care (01) | DRG 720 ==
LOC: ER 23:18 → OVERFLOW 23:19 → TELE-CENTR 07-20 08:14 → CENTRAL 07-20 21:07
PROVIDERS: ADMIT Nurse Practitioner; ATTEND Internal Medicine Nephrology
DX: A41.9 Sepsis, unspecified organism (principal); L03.116 Cellulitis of left lower limb; L03.115 Cellulitis of right lower limb; N81.10 Cystocele, unspecified; E66.01 Morbid (severe) obesity due to excess calories; R65.20 Severe sepsis without septic shock; D50.9 Iron deficiency anemia, unspecified; F32.9 Major depressive disorder, single episode, unspecified; F20.9 Schizophrenia, unspecified; F17.210 Nicotine dependence, cigarettes, uncomplicated; N13.30 Unspecified hydronephrosis; Z71.3 Dietary counseling and surveillance; Z79.899 Other long term (current) drug therapy; Z79.891 Long term (current) use of opiate analgesic; Z79.01 Long term (current) use of anticoagulants; Z85.9 Personal history of malignant neoplasm, unspecified; Z90.49 Acquired absence of other specified parts of digestive tract; Z85.72 Personal history of non-Hodgkin lymphomas; Z83.3 Family history of diabetes mellitus; I10 Essential (primary) hypertension; E87.6 Hypokalemia; E87.1 Hypo-osmolality and hyponatremia; B95.62 Methicillin resistant Staphylococcus aureus infection as the cause of diseases classified elsewhere; L97.929 Non-pressure chronic ulcer of unspecified part of left lower leg with unspecified severity; L97.919 Non-pressure chronic ulcer of unspecified part of right lower leg with unspecified severity; B96.5 Pseudomonas (aeruginosa) (mallei) (pseudomallei) as the cause of diseases classified elsewhere; Z68.41 Body mass index [BMI] 40.0-44.9, adult
CPT/HCPCS: 36415; 73700; 74176; 80048; 80053; 80202; 81001; 83540; 83550; 83605; 85025; 85610; 85730; 87040; 87077; 87081; 87186; 87205; 93005; 93926; 93970; G0378; J0696; J2185; J2405; J3490